=== PATIENT | male | born 1965 | race Caucasian/White ===

== ENCOUNTER 2016-07-27 09:27 | Emergency (ER) | payer MEDICAID, OTHER ==
[~2016-07-27] VITALS: Ht 175.3 cm; Wt 85.0 kg
[2016-07-27] MEDS ORDERED: SOD CHLORIDE 0.9% 1,000 ML IV STA (09:38)
[2016-07-27] MEDS ORDERED: ONDANSETRON 4 MG INJ IV STA (09:38)
[2016-07-27] MEDS ORDERED: morphine 4 MG/ML VIAL IV STA (09:38)
[2016-07-27 09:48] VITALS: Ht 175.3 cm; Wt 85.0 kg
[2016-07-27 09:58] LABS: ADD SCAN DIFF NO
[2016-07-27 09:59] LABS: BASOPHILS % 0.3 % (0.0-2.0); EOSINOPHILS % 0.4 % (0.0-7.0); HEMATOCRIT 45.9 % (42.0-52.0); HEMOGLOBIN 15.8 g/dl (14.0-18.0); LYMPHOCYTES # 1.1 10^3/ul (0.8-2.9); LYMPHOCYTES % 11.1 % (15.0-51.0); MEAN CORPUSCULAR HEMOGLOBIN 32.3 pg (29.0-33.0); MEAN CORPUSCULAR HGB CONC 34.4 g/dl (32.0-37.0); MEAN CORPUSCULAR VOLUME 93.9 fl (82.0-101.0); MEAN PLATELET VOLUME 8.9 fl (7.4-10.4); MONOCYTE # 0.3 10^3/ul (0.3-0.9); MONOCYTES % 3.4 % (0.0-11.0); NEUTROPHIL # 8.2 10^3/ul (1.6-7.5); NEUTROPHILS % 84.2 % (39.0-77.0); PLATELET COUNT 182 10^3/UL (140-415); RED BLOOD COUNT 4.89 10^6/ul (4.70-6.10); RED CELL DISTRIBUTION WIDTH 12.7 % (11.5-14.5); WHITE BLOOD COUNT 9.8 10^3/ul (4.8-10.8)
[2016-07-27 10:02] LABS: ADD UMIC YES; URINE BILIRUBIN (Dip) NEGATIVE (NEGATIVE); URINE BLOOD (Dip) NEGATIVE (NEGATIVE); URINE COLOR LT. YELLOW (YELLOW); URINE GLUCOSE (Dip) NEGATIVE (NEGATIVE); URINE KETONES (Dip) NEGATIVE (NEGATIVE); URINE LEUKOCYTE ESTERASE (Dip) NEGATIVE (NEGATIVE); URINE NITRITE (Dip) NEGATIVE (NEGATIVE); URINE TOTAL PROTEIN (Dip) NEGATIVE (NEGATIVE); URINE UROBILINOGEN (Dip) 0.2 E.U./dL (0.1-1.0)
[2016-07-27 10:07] LABS: ALBUMIN 4.8 g/dl (3.3-4.9)
[2016-07-27 10:08] LABS: POTASSIUM 3.5 mmol/L (3.5-5.1)
[2016-07-27 10:10] LABS: ALBUMIN/GLOBULIN RATIO 1.33; BILIRUBIN,INDIRECT 0.4 mg/dl (0-1.1); BILIRUBIN,TOTAL 0.4 mg/dl (0.2-1.3); CREATININE 1.22 mg/dl (0.61-1.24); TOTAL PROTEIN 8.4 g/dl (6.1-8.1)
[2016-07-27 10:11] LABS: CALCIUM 9.6 mg/dl (8.4-10.2)
[2016-07-27 10:18] LABS: CANNABINOIDS Positive (NEGATIVE)
[2016-07-27 10:38] LABS: BARBITURATES Negative (NEGATIVE); BENZODIAZEPINES Negative (NEGATIVE); COCAINE Negative (NEGATIVE); OPIATES Negative (NEGATIVE)
--- NOTE | 2016-07-27 10:39 | RADRPT ---
PROCEDURE: CT Abdomen and Pelvis without contrast. CLINICAL INDICATION: Abdominal pain TECHNIQUE: CT scan of the abdomen and pelvis without contrast was performed on a multi-slice CT sc [employer] [facility] [employer] without intravenous contrast. Coronal and sagittal reformatted images were obtained from the axial source images. Images were reviewed on a high-resolution PACS workstation. One or more of the following does reduction techniques were used: Automated exposure control; adjustment of the mA an d/or kV according to patient size; use of the aorta of reconstruction technique. The total exam CTD I equals 21.19 mGy and the total exam DLP equals 1448.58 mGy-cm. COMPARISON: None available FINDINGS: Breathing artifact limits evaluation of the lung bases. There are mild dependent changes posteriorl y. Heart size is normal, and there is no evidence of pericardial thickening or effusion. There is diffuse decreased attenuation of the hepatic parenchyma consistent with fatty infiltration. The gallbladder is normal. The adrenal glands are normal. There is a 2 mm left upper pole nonobstructing renal calculus. No o ther left renal calculi are seen. There is no hydronephrosis on the left. There is a punctate righ t mid pole nonobstructing renal calculus. In addition, there is a 2 mm calcification at the level o f the right ureteral vesicular junction causing mild right hydroureteronephrosis and moderate right perinephric and periureteral inflammatory change. No other renal or ureteral calculi identified.. The aorta is of normal caliber. Atherosclerotic calcifications of the iliac arteries are present. T here is no retroperitoneal lymph node enlargment. There is no evidence of large or small bowel obstruction. A normal appendix is identified. No mac e fluid or fluid collections are identified. No inflammatory changes are seen. There is a tiny meir umbilical hernia containing only fat. The prostate is mildly enlarged. No enlarged pelvic sidewall lymph nodes are seen. The bladder is d ecompressed. As noted above, there is a 2 mm right ureterovesicular junction calcification. No mac e fluid is identified. There is a small left inguinal hernia containing only fat. Bilateral hydroc eles are noted. The right testis appears to be within the right inguinal canal. Mild degenerate change of the spine. The bones are otherwise intact. IMPRESSION: 1. 2 mm right ureterovesicular junction calcification causing mild right hydroureteronephrosis. 2. 2 mm left upper pole nonobstructing renal calculus. 3. Fatty infiltration of the liver. 4. Atherosclerotic vascular disease. 5. The right testis within the right inguinal canal. Recommend correlation with physical exam. 6. Tiny periumbilical and small left inguinal hernias containing only fat. 7. Mild prostatomegaly. 8. Bilateral scrotal hydroceles. RPTAT: AA .Nathaniel Lord MD, MD Date Time Electronically viewed and signed by .Nathaniel Lord MD, MD on 07/27/2016 10:39 .B/
[2016-07-27] MEDS ORDERED: KETOROLAC 30 MG INJ IV STA (11:05)
[2016-07-27] MEDS ORDERED: TAMS-14 PO (11:27)
[2016-07-27] MEDS ORDERED: IBUP-1542 PO (11:27)
[2016-07-27] MEDS ORDERED: HYDR-902 PO (11:27)
[2016-07-27 11:40] LABS: BACTERIA,URINE FEW; SQUAMOUS EPITHELIAL CELL,UR FEW; URINE RBCS 0-2 /HPF (0)
[2016-07-27 12:09] VITALS: BP 128/68; PULSE 77; RESP 18; TEMP 98
--- NOTE | 2016-07-27 13:00 | ERD ---
ER Documentation Chief Complaint Date/Time DATE: 07/27/16 TIME: 12:59 Chief Complaint ap x today has a unsteady gait HPI Patient is a 51-year-old male with no medical problems who presents with abdominal pain. The patient was brought in by ambulance. The symptoms started at 8 AM. The pain is in the right lower quadrant. It is constant but waxes and wanes in intensity. The patient has had no treatment as of yet. He has no fevers. He has no vomiting or diarrhea. He denies testicular pain. He does not currently have a primary doctor. Upon review of old medical records this the patient's first visit to the emergency department ROS All systems reviewed and are negative except as per history of present illness. Medications Home Meds Active Scripts Tamsulosin Hcl* (Flomax*) 0.4 Mg Cap.er.24h, 0.4 MG PO QPM, #30 CAP Prov:ELROY LANTIGUA MD 07/27/16 Hydrocodone/Acetaminophen (Bicknell 10-325 Tablet) 1 Each Tablet, 1 TAB PO Q6H Y for PAIN, #12 TAB Prov:ELROY LANTIGUA MD 07/27/16 Ibuprofen* (Motrin*) 600 Mg Tab, 600 MG PO Q6H Y for PAIN AND OR ELEVATED TEMP, #30 TAB Prov:ELROY LANTIGUA MD 07/27/16 Allergies Allergies: Coded Allergies: No Known Allergy (Unverified , 07/27/16) PMhx/Soc Medical and Surgical Hx: pt denies Medical Hx, pt denies Surgical Hx Hx Alcohol Use: Yes Hx Substance Use: No Hx Tobacco Use: No Smoking Status: Unknown if ever smoked FmHx Family History: No diabetes Physical Exam Vitals Vital Signs Date Time Temp Pulse Resp B/P Pulse Ox O2 Delivery O2 Flow Rate FiO2 07/27/16 12:09 98.0 77 18 128/68 99 Room Air 07/27/16 09:48 98.6 60 18 154/89 98 Physical Exam Const: Moderate distress secondary to pain Head: Atraumatic Eyes: Normal Conjunctiva ENT: Normal External Ears, Nose and Mouth. Neck: Full range of motion..~ No meningismus. Resp: Clear to auscultation bilaterally Cardio: Regular rate and rhythm, no murmurs Abd: Soft, right lower quadrant tenderness to palpation without rebound or guarding Skin: No petechiae or rashes Back: No midline or flank tenderness Ext: No cyanosis, or edema Neur: Awake and alert Psych: Normal Mood and Affect Result Diagram: 07/27/1640 07/27/16 0940 Results 24 hrs Laboratory Tests Test 07/27/16 09:40 White Blood Count 9.810^3/ul Red Blood Count 4.8910^6/ul Hemoglobin 15.8g/dl Hematocrit 45.9% Mean Corpuscular Volume 93.9fl Mean Corpuscular Hemoglobin 32.3pg Mean Corpuscular Hemoglobin Concent 34.4g/dl Red Cell Distribution Width 12.7% Platelet Count 64269^3/UL Mean Platelet Volume 8.9fl Neutrophils % 84.2% Lymphocytes % 11.1% Monocytes % 3.4% Eosinophils % 0.4% Basophils % 0.3% Nucleated Red Blood Cells % 0.0/100WBC Neutrophils # 8.210^3/ul Lymphocytes # 1.110^3/ul Monocytes # 0.310^3/ul Eosinophils # 0.010^3/ul Basophils # 0.010^3/ul Nucleated Red Blood Cells # 0.010^3/ul Urine Color LT. YELLOW Urine Clarity CLOUDY Urine pH 7.5 Urine Specific Howe 1.015 Urine Ketones NEGATIVE Urine Nitrite NEGATIVE Urine Bilirubin NEGATIVE Urine Urobilinogen 0.2 E.U./dL Urine Leukocyte Esterase NEGATIVE Urine Microscopic RBC 0-2/HPF Urine Microscopic WBC 0-2/HPF Urine Squamous Epithelial Cells FEW Urine Amorphous Phosphates MANY Urine Bacteria FEW Urine Hemoglobin NEGATIVE Urine Glucose NEGATIVE% Urine Total Protein NEGATIVE Sodium Level 143mmol/L Potassium Level 3.5mmol/L Chloride Level 104mmol/L Carbon Dioxide Level 30mmol/L Anion Gap 13 Blood Urea Nitrogen 18mg/dl Creatinine 1.22mg/dl Glucose Level 175mg/dl Calcium Level 9.6mg/dl Total Bilirubin 0.4mg/dl Direct Bilirubin 0.00mg/dl Indirect Bilirubin 0.4mg/dl Aspartate Amino Transf (AST/SGOT) 23IU/L Alanine Aminotransferase (ALT/SGPT) 56IU/L Alkaline Phosphatase 86IU/L Total Protein 8.4g/dl Albumin 4.8g/dl Globulin 3.60g/dl Albumin/Globulin Ratio 1.33 Lipase 83U/L Urine Opiates Screen Negative Urine Barbiturates Negative Urine Amphetamines Screen Positive Urine Benzodiazepines Screen Negative Urine Cocaine Screen Negative Urine Cannabinoids Positive Current Medications Medications (Trade) Dose Ordered Sig/Tana Route PRN Reason Start Time Stop Time Status Last Admin Dose Admin Sodium Chloride (NS) 1,000 ml @ 1,000 mls/hr Q1H STAT IV 07/27/16 09:38 07/27/16 10:37 DC 07/27/16 09:45 Morphine Sulfate (morphine) 4 mg ONCE STAT IV 07/27/16 09:38 07/27/16 09:39 DC 07/27/16 09:45 Ondansetron HCl (Zofran Inj) 4 mg ONCE STAT IV 07/27/16 09:38 07/27/16 09:39 DC 07/27/16 09:45 Ketorolac Tromethamine (Toradol) 30 mg ONCE STAT IV 07/27/16 11:05 07/27/16 11:06 DC 07/27/16 11:14 Procedures/MDM CT scan shows right-sided 2 mm kidney stone per radiology. Patient is a 51-year-old male presents with abdominal pain and flank pain. He was found to have a 2 mm kidney stone. There is no sign of infected kidney stone at this time. I believe outpatient management is appropriate. However the patient will need close follow-up with a urologist within 24-48 hours for reevaluation. I will give him information for Dr. Uriarte. The patient be given a prescription for ibuprofen, Bicknell, and Flomax. Departure Diagnosis: Primary Impression: Kidney stone Additional Impression: Abdominal pain Abdominal location: right lower quadrant Qualified Code: R10.31 - Right lower quadrant abdominal pain Patient Instructions: Kidney Stone W/ Colic Referrals: JAMMIE URIARTE MD Additional Instructions: SPECIALIST: YOU HAVE A MEDICAL CONDITION WHICH REQUIRES YOU TO SEE A SPECIALIST WITHIN THE NEXT 1-2 DAYS. PLEASE FOLLOW UP WITH YOUR PRIMARY PHYSICIAN FOR REFFERAL.IF YOU DO NOT HAVE A PRIMARY CARE PHYSICIAN AND/OR YOU CAN NOT AFFORD TO SEE A PHYSICIAN THE FOLLOWING RESOURCES HAVE BEEN SUPPLIED TO YOU. IT IS YOUR RESPONSIBILITY TO BE SEEN BY THE SPECIALIST ELROY LANTIGUA MD Jul 27, 2016 13:00
== END 2016-07-27 12:09 | disposition home or self-care (01) ==
LOC: E/R 09:27
DX: N20.0 Calculus of kidney (principal); R40.2142 Coma scale, eyes open, spontaneous, at arrival to emergency department; R40.2252 Coma scale, best verbal response, oriented, at arrival to emergency department; R40.2362 Coma scale, best motor response, obeys commands, at arrival to emergency department
CPT/HCPCS: 74176; 80053; 80307; 81001; 81003; 83690; 85025; J1885; J2270; J2405; J7030; 36415; 96374; 96375

== ENCOUNTER 2017-09-28 04:06 | Emergency (ER) | END 2017-09-28 10:34 | disposition home or self-care (01) ==